=== PATIENT | female | born 1990 | race African-American/Black ===

== ENCOUNTER 2018-04-13 20:02 | Emergency (ER) | payer SELFPAY ==
[~2018-04-13] VITALS: Ht 170.2 cm; Wt 67.0 kg
[2018-04-13 22:48] VITALS: BP 162/112
== END 2018-04-13 23:15 | disposition left against medical advice (07) ==
LOC: ER 21:47
DX: I10 Essential (primary) hypertension (principal); Z53.21 Procedure and treatment not carried out due to patient leaving prior to being seen by health care provider
CPT/HCPCS: 81025